=== PATIENT | male | born 1945 | race Caucasian/White ===

== ENCOUNTER → 2017-03-03 | Outpatient (CLI) | payer MEDICARE, OTHER ==
--- NOTE | 2017-03-03 09:25 | KCIC ---
SCAN OF ABDOMINAL AORTA History: Screening for abdominal aortic aneurysm, smoking history Comparison: None. Findings: Multiple grayscale, color, duplex Diagnosis with from images were acquired of the abdominal aorta. No abdominal aortic aneurysm is demonstrated. Maximal proximal dimension was 0.9 cm, 1.6 cm at the mid segment, and 1.4 cm distally. There is scattered mild plaque. Peak systolic velocity of mid abdominal aorta was 91 cm/s, 85 cm/s distally, and 50 cm/s proximally. Impression: 1. No abdominal aortic aneurysm is demonstrated. Electronically signed by: Gerardo Stacy MD (03/03/2017 9:22 AM)
== END | disposition home or self-care (01) ==
LOC: KCIC US 07:54
PROVIDERS: ATTEND Physician Assistant
DX: Z13.6 Encounter for screening for cardiovascular disorders (principal)
CPT/HCPCS: 76770

== ENCOUNTER → 2018-03-18 | Outpatient (CLI) | payer MEDICARE, OTHER | END | disposition home or self-care (01) | LOC: ECHO 12:53 | DX: R06.09 Other forms of dyspnea (principal) | CPT/HCPCS: 93017; 93350 ==